=== PATIENT | male | born 1970 | race Caucasian/White ===

== ENCOUNTER 2019-01-14 07:59 | Day surgery (SDC) | payer BC ==
[2019-01-14] MEDS ORDERED: Lactated Ringers 1,000 ML IV SCH (08:00)
[2019-01-14] MEDS ORDERED: Sodium Chloride 0.9% 10 ML Syringe FLUSH PRN (08:00)
--- NOTE | 2019-01-14 09:14 | PCM.OPNOTE ---
- General Post-Op/Procedure Note Date of Surgery/Procedure: 01/14/19 Operative Procedure(s): c scope with bx Findings: sigmoid polyp x2 sigmoid diverticulosis Pre Op Diagnosis: hx of colon polyps Post-Op Diagnosis: sigmoid polyps. sigmoid diverticulosis Anesthesia Technique: MAC Primary Surgeon: Stanford Coughlin Anesthesia Provider: Efraín Jean-Baptiste Pathology: sigmoid polyps x2 Complications: None Condition: Good Free Text/Narrative:: see dictation
[2019-01-14] MEDS ORDERED: Simethicone Drops 40 MG/0.6 ML 30 ML Bottle ONE (09:29)
--- NOTE | 2019-01-14 09:51 | PCM.OPNOTE ---
- General Post-Op/Procedure Note Date of Surgery/Procedure: 01/14/19 Operative Procedure(s): c scope with bx Findings: transverse colon x2 descending colon rectal polyp Pre Op Diagnosis: screening Post-Op Diagnosis: colon polyps Anesthesia Technique: MAC Primary Surgeon: Stanford Coughlin Anesthesia Provider: Efraín Jean-Baptiste Pathology: as above Complications: None Condition: Good Free Text/Narrative:: see dictation
[2019-01-14] MEDS ORDERED: Lidocaine 1% PF 2 ML SDV INJECT ONE (10:00)
[2019-01-14] MEDS ORDERED: Propofol 200 MG/20 ML SDV IV ONE (10:00)
--- NOTE | 2019-01-14 15:04 | OR ---
DATE OF OPERATION: 01/14/2019 SURGEON: Stanford Coughlin MD PROCEDURE PERFORMED: Colonoscopy with cold forceps biopsy. PREOPERATIVE DIAGNOSIS: Need for screening C-scope. POSTOPERATIVE DIAGNOSIS: Transverse colon polyp x2, descending colon polyp x1, and rectal polyp x1. INDICATIONS FOR PROCEDURE: This is a 48-year-old white male who presents for his initial screening colonoscopy. He was offered and accepted same. DESCRIPTION OF OPERATION: After an excellent IV sedation was administered, digital rectal exam was performed. No marked abnormality was noted. Flexible colonoscope inserted, advanced to the cecum. Prep was excellent. The following findings were noted. Ascending colon, unremarkable. Transverse colon, 2 small polypoid lesions, biopsied and submitted in 1 container. Descending colon, one small polypoid lesion, biopsied and submitted. Sigmoid unremarkable, and rectum approximately 5 cm above the anal verge, a small polyp was encountered and this was biopsied as well. The patient tolerated the procedure well and was taken to recovery room. Results by letter. /[id number] /LETY
== END 2019-01-14 10:25 | disposition home or self-care (01) ==
LOC: FB.SDS 07:59
PROVIDERS: ATTEND Surgery
DX: Z12.11 Encounter for screening for malignant neoplasm of colon (principal); D12.4 Benign neoplasm of descending colon; K63.5 Polyp of colon; K62.1 Rectal polyp
CPT/HCPCS: 00812-QZ; 88305; A9270-GY; J2001; J2704; J7120